=== PATIENT | female | born 1980 | race Caucasian/White ===

== ENCOUNTER 2019-12-02 23:29 | Emergency (ER) | payer OTHER ==
[~2019-12-02] VITALS: Ht 167.6 cm; Wt 96.6 kg
[2019-12-02 23:51] VITALS: BP_SYST 148
--- NOTE | 2019-12-02 23:56 | NUR ---
tPatient triaged and placed in waiting room. VSS and patient appears in no acute distress at this time. Accompanied by self, awaiting available bed, and MD notified of need for MSE.
--- NOTE | 2019-12-03 01:39 | NUR ---
Patient to ER bed 05 for evaluation. Side rails up.
--- NOTE | 2019-12-03 01:49 | NUR ---
Pt AAOx4 ambulated into ED c/o foreign body in R ear. Pt reports it is an earring that accidentally fell into her ear when she was removing it prior to bedtime. Denies pain/blurred vision/hearing loss. No discharge/bleeding noted. will contine to monitor.
--- NOTE | 2019-12-03 02:03 | NUR ---
ER Dr. Carcamo at bedside examining patient.
--- NOTE | 2019-12-03 02:18 | NUR ---
Earring removed with fraizer suction tubing. Pt reports relief of pressure. Dr. Carcamo notified.
--- NOTE | 2019-12-03 02:42 | NUR ---
ER Dr. Carcamo at bedside examining patient.
--- NOTE | 2019-12-03 02:50 | NUR ---
Patient given written and verbal discharge instructions and verbalizes understanding. ER MD Carcamo discussed with patient the results and treatment provided. Patient in stable condition. ID arm band removed. No Rx given. Patient educated on pain management and to follow up with PMD. Pain Scale 0. Opportunity for questions provided and answered. Medication side effect fact sheet provided.
[2019-12-03 02:59] VITALS: BP_SYST 131
== END 2019-12-03 02:59 | disposition home or self-care (01) ==
LOC: SED 23:29
DX: T16.1XXA Foreign body in right ear, initial encounter (principal); Z88.1 Allergy status to other antibiotic agents; X58.XXXA Exposure to other specified factors, initial encounter; Y93.89 Activity, other specified; Y92.89 Other specified places as the place of occurrence of the external cause; Y99.8 Other external cause status
CPT/HCPCS: 99284